=== PATIENT | male | born 1975 | race Caucasian/White ===

== ENCOUNTER 2016-06-09 19:14 | Inpatient (IN) | payer OTHER ==
--- NOTE | ~2016-06-09 | DS ---
Unit #: [id number] #: [id number] Patient: TAMEKA CUNNINGHAM [id number] [facility] [address] [place] [address] [id number] I MR#: [id number] NAME: TAMEKA CUNNINGHAM ROOM: [facility] Age: 41 Sex: M Admission Date: 06/09/2016 : 1975 Discharge Date: 06/11/2016 Attending Physician: Lizandro Bhandari M.D. Primary Care Physician: Primary Care Physician No DISCHARGE SUMMARY IDENTIFYING DATA Mr. Cunningham is a 41-year-old single white male who is resident of [facility] was self-referred to the hospital on a voluntary basis. DISCHARGE DIAGNOSIS PSYCHIATRIC 1. Opioid dependence moderate and acute withdrawal. 2. Opioid induced mood disorder. MEDICAL None. STRESSORS Moderate psychosocial stressors. HISTORY OF PRESENT ILLNESS Mr. Cunningham is a 41-year-old white male with history of substance abuse and dependence, who was self-referred to the hospital. He reports that he has been using heroin on a daily basis and he is taking assistance for detox and ongoing treatment. His mother reports that she gave him the option to come seek treatment or to move out and the patient decided to come to the treatment. He does report depression, anxiety, irritability, restlessness, but denies any current suicidal ideations, intent, or plan. PAST PSYCHIATRIC HISTORY The patient denies any previous inpatient or outpatient psychiatric treatment. Review of the medical records indicate that currently he is not active in any treatment program, is not seeing a psychiatrist, and is not taking any psychotropic medications. PAST MEDICAL HISTORY No acute or chronic medical illnesses. HOSPITAL COURSE The patient admitted to the adult chemical dependency unit at [facility] theresa Ashton and was oriented to the hospital environment. Routine p.r.n. medications were initiated and he was started on the opioid detox protocol and was closely monitored. However, he was seen to be having some significant anxiety and detox symptoms and medications were adjusted but then he changed his mind stating that he just wanted to leave and was wanted to go to the Suboxone clinic and was denying any suicidal ideation, intent or plan and though was encouraged and recommended to complete the Unit #: [id number] #: [id number] Patient: TAMEKA CUNNINGHAM detox, he did not appear to be very motivated towards treatment and refused to accept treatment recommendations and since he was not seen to be a danger to self or anyone else, it was decided that he will be discharged and we will continue treatment on outpatient basis. DISCHARGE MEDICATION None. DISCHARGE CONDITION Stable. PROGNOSIS Fair. Dictated by... Nya Aponte/nayeli TD: 06/13/2016 21:11 JOB #: [id number] DISCHARGE SUMMARY Page 1 of 1 X Lizandro Bhandari MD X DISCHARGE SUMMARY
--- NOTE | ~2016-06-09 | HP ---
Unit #: [id number] #: [id number] Patient: TAMEKA CUNNINGHAM [id number] [place] [address] [id number] I MR#: [id number] NAME: TAMEKA CUNNINGHAM ROOM: P205 Age: 41 Sex: M Admission Date: 06/09/2016 : 1975 Attending Physician: Lizandro Bhandari M.D. Admitting Physician: Lizandro Bhandari M.D. Primary Care Physician: Primary Care Physician No HISTORY AND PHYSICAL HISTORY OF PRESENT ILLNESS Tameka is a 41 year old admitted to [address] [place] [address] because of his drug use. He shoots heroin. PAST MEDICAL HISTORY Long history of illicit substance abuse to include IV heroin. PAST SURGICAL HISTORY Nothing reported. ALLERGIES No known drug allergies. SOCIAL HISTORY Smokes less than 1/2 pack per day. Denies alcohol. Admits to a history of illicit substance abuse to include IV heroin. FAMILY HISTORY Medically noncontributory. REVIEW OF SYSTEMS CONSTITUTIONAL: No fever or chills. HEENT: Denies any sore throat, ear pain or runny nose. CARDIOVASCULAR: Denies chest pain, irregular heart rhythm or palpitations. CHEST: Denies shortness of breath or cough. No hemoptysis. GASTROINTESTINAL: Denies nausea, vomiting, diarrhea or chronic constipation. ENDOCRINE: Denies history of increased thirst or urination. No recent significant weight loss or gain. GENITOURINARY: Denies dysuria, frequency, or hematuria. SKIN: Denies any rashes. HEMATOLOGIC: Denies history of increased bleeding or bruising. MUSCULOSKELETAL: Denies any hot, swollen joints. No generalized muscle pain. NEUROLOGIC: Denies problems with vision or speech. No frequent, severe headaches. No numbness, tingling or weakness in any extremities. Denies loss of bladder or bowel control. CURRENT MEDICATIONS Detox protocol. PHYSICAL EXAMINATION GENERAL: Alert, well-nourished, in no apparent distress. Unit #: [id number] #: [id number] Patient: TAMEKA CUNNINGHAM VITAL SIGNS: Blood pressure 158/110, heart rate 76, respirations 16, temperature 98.6. WEIGHT: 328 pounds. HEIGHT: 6 feet 0 inches. SKIN: Warm and dry without rash or lesion. HEENT: Normocephalic. TMs not viewed. Oral and nasal passages clear. Conjunctivae clear. PERRLA. EOMs intact. NECK: Supple without lymphadenopathy or thyromegaly. HEART: Regular rate and rhythm without murmur. LUNGS: Clear. ABDOMEN: Soft, nontender. : Not done. EXTREMITIES: No evidence of cyanosis, clubbing or edema. Moves all without focal deficit. NEUROLOGICAL: Grossly within normal limits. Cranial Nerves: II: Visual feliciano are intact. III, IV AND : Extraocular movements are intact. Pupils are equal, round and reactive to light. V: Facial sensation is grossly normal. VII: Facial movements and expression are normal. VIII: Auditory acuity grossly intact. IX, X: Uvula is midline. Phonation is normal. XI: Patient shrugs shoulders and turns head normally. XII: Tongue protrudes in the midline. Sensory and Motor Function: Sensory and motor sensation is grossly normal. Motor: moves all extremities well. Coordination: Gait is normal. Deep Tendon Reflexes: Intact. IMPRESSION 1. Psychiatric admission. 2. IV heroin use. 3. Morbid obesity. RECOMMENDATIONS PSYCHIATRIC: Per psychiatrist. MEDICAL: 1. See no contraindications to participate in facility's activities. 2. Detox per protocol. 3. Liver enzymes are elevated on admission. Would screen for hepatitis C. MEDICAL PROGNOSIS Good. MEDICAL CONDITION Stable. Dictated by... Tammy Escudero PStormAStorm-Ebonie. for Nya Kramer/oliverio TD: 06/10/2016 19:47 JOB #: [id number] Unit #: [id number] #: [id number] Patient: TAMEKA CUNNINGHAM HISTORY AND PHYSICAL Page 1 of 1 X Tammy Escudero X HISTORY AND PHYSICAL
--- NOTE | ~2016-06-09 | PA ---
Unit #: [id number] #: [id number] Patient: TAMEKA SANCHEZ [id number] [facility] [address] [place] [address] [id number] I MR#: [id number] NAME: TAMEKA SANCHEZ ROOM: [facility] Age: 41 Sex: M Admission Date: 06/09/2016 : 1975 Date of Assessment: 06/10/2016 Attending Physician: Lizandro Bhandari M.D. Admitting Physician: Lizandro Bhandari M.D. Primary Care Physician: Primary Care Physician No PSYCHIATRIC ASSESSMENT DATE OF SERVICE 06/10/2016. IDENTIFYING DATA Mr. Sanchez is a 41-year-old single white male, who is a resident of [place], [place], and was self-referred to the hospital on a voluntary basis and accompanied by his mother. CHIEF COMPLAINT "Daily heroin use." HISTORY OF PRESENT ILLNESS Mr. Sanchez is a 41-year-old white male with history of substance abuse and dependence, who was self-referred to the hospital. He reports that he has been using heroin on a daily basis and he is taking assistance for detox and ongoing treatment. His mother reports that she gave him the option to come seek treatment or to move out and the patient decided to come to the treatment. He does report depression, anxiety, irritability, restlessness, but denies any current suicidal ideations, intent, or plan. SUBSTANCE ABUSE HISTORY The patient reports extensive history of substance abuse and dependence including alcohol, cannabis, cocaine, acid, opioids, and currently opioids, particularly heroin has been his drug of choice. PAST PSYCHIATRIC HISTORY The patient denies any previous inpatient or outpatient psychiatric treatment. Review of the medical records indicate that currently he is not active in any treatment program, is not seeing a psychiatrist, and is not taking any psychotropic medications. PAST MEDICAL HISTORY No acute or chronic medical illnesses. ALLERGIES No known medication allergies. CURRENT MEDICATIONS None. PERSONAL AND SOCIAL HISTORY A 41-year-old white male, who reports that he lives at home with his mother and has fairly decent social support system. He is currently Unit #: [id number] #: [id number] Patient: TAMEKA SANCHEZ unemployed. He denies any ongoing legal issues. MENTAL STATUS EXAMINATION Young white male who was casually dressed with fair personal hygiene, appears to be in no acute distress or discomfort. He was awake and alert on interaction with intact orientation to time, place, and person. His mood was anxious with a congruent affect. He denies any suicidal or homicidal ideations, and also denies any auditory or visual hallucinations. His insight and judgment remain slightly impaired. DIAGNOSTIC IMPRESSION Psychiatric: Opioid dependence, moderate and acute withdrawals; opioid-induced mood disorder. Medical: None. Stressors: Moderate psychosocial stressors. TREATMENT PLAN 1. The patient has presented with history of substance abuse and mood disorder, and has been decompensating and will need inpatient hospitalization for detoxification, safety, and stabilization. We will start him on detox protocol. We will closely monitor for any worsening withdrawal symptoms. 2. Supportive therapy was provided to the patient. 3. Safe, structured, and nourishing environment will be provided. ESTIMATED LENGTH OF STAY 3 to 4 days. ABILITY TO HELP SELF Limited. WILLINGNESS TO HELP SELF The patient appears to be willing to help self. STRENGTHS 1. Communicative. 2. Cooperative. PROBLEMS 1. Chronic dysphoric symptoms. 2. Chronic chemical dependency. 3. Poor social support system. DISCHARGE CRITERIA This will be contingent upon the patient's ability to go through detox without having any significant withdrawal symptoms as well as his ability to stay safe to himself, particularly after discharge from the hospital. Dictated by... Nya Aponte/ruth TD: 06/10/2016 07:35 JOB #: [id number] Unit #: [id number] #: [id number] Patient: TAMEKA SANCHEZ PSYCHIATRIC ASSESSMENT Page 1 of 1 X Lizandro Bhandari MD X PSYCHIATRIC ASSESSMENT
[2016-06-10 09:41] LABS: BASOPHIL# 0.1 X10e3 (0-0.3); BASOPHIL% 0.5 % (0-2.5); EOSINOPHIL# 0.2 X10e3 (0-0.7); EOSINOPHIL% 1.5 % (0.0-7.0); HEMATOCRIT 39.3 % (38.0-50.0); HEMOGLOBIN 13.3 gm/dL (13.0-16.0); LYMPHOCYTE# 2.8 X10e3 (1.0-3.5); LYMPHOCYTE% 21.5 % (17.0-45.0); MEAN CELL VOLUME 86.3 FL (83-96); MEAN CORPUSCULAR HEMOGLOBIN 29.1 PG (28-34); MEAN CORPUSCULAR HGB CONC 33.8 g/dL (30-36); MEAN PLATELET VOLUME 7.9 FL (6.5-11.5); MONOCYTE% 7.9 % (3.0-12.0); NEUTROPHIL% 68.6 % (40-75); PLATELET COUNT 346 X10e3 (140-420); RED BLOOD COUNT 4.55 X10e (3.90-5.60); WHITE BLOOD COUNT 13.1 X10e3 (4.0-10.5)
[2016-06-10 09:44] LABS: DIFF IND NO
[2016-06-10 10:27] LABS: ALBUMIN SERUM 3.7 g/dL (3.5-5.0); BILIRUBIN,TOTAL 0.7 mg/dL (0.2-2.0); CREATININE SERUM 0.7 mg/dL (0.6-1.4); GLOM FILT RATE Estimated 118.9 mL/min (>60); POTASSIUM 3.8 mmol/L (3.5-5.1); PROTEIN TOTAL SERUM 6.9 g/dL (6.0-8.3)
[2016-06-11 09:47] LABS: URINE APPEARANCE CLEAR; URINE BILIRUBIN NEG (NEG); URINE BLOOD NEG (NEG); URINE COLOR DK YELLOW; URINE GLUCOSE NEG (NEG); URINE KETONE NEG (NEG); URINE LEUKOCYTE ESTERASE NEG (NEG); URINE NITRATE NEG (NEG); URINE PH 6.5 (5-8); URINE PROTEIN NEG (NEG); URINE SPECIFIC GRAVITY 1.016 (1.003-1.035); URINE UROBILINOGEN 0.2 MG/DL (NEG)
[2016-06-11 10:47] LABS: AMPHETAMINE NEG (NEG); BARBITURATES NEG (NEG); BENZODIAZEPINES NEG (NEG); COCAINE NEG (NEG); MARIJUANA NEG (NEG); OPIATES POS (NEG); TRICYCLIC ANTIDEPRESSANTS POS (NEG); U METHADONE NEG (NEG)
[2016-06-18 09:15] LABS: HA AB IGM (HEPPAN) Nonreactive (()); HB CORE AB IGM (HEPPAN) Nonreactive (Nonreactive); HB S AG (HEPPAN) Nonreactive (Nonreactive); HEP C AB (HEPPAN) Reactive (Nonreactive)
== END 2016-06-11 10:04 | disposition home or self-care (01) | DRG 897 ==
LOC: POF 19:14 → C2A 20:31 → P2S 20:52
PROVIDERS: Psychiatry & Neurology Psychiatry
PROC: HZ2ZZZZ Detoxification Services for Substance Abuse Treatment (ICD-10-PCS; principal; 2016-06-09)
DX: F11.23 Opioid dependence with withdrawal (principal); E66.01 Morbid (severe) obesity due to excess calories; F11.24 Opioid dependence with opioid-induced mood disorder; F17.210 Nicotine dependence, cigarettes, uncomplicated
CPT/HCPCS: 80053; 80074; 80307; 81003; 85025; 86592; 87522; 87806